=== PATIENT | male | born 1945 | race Caucasian/White ===

== ENCOUNTER 2018-09-05 15:00 | Inpatient (IN) | payer OTHER ==
[~2018-09-05] VITALS: Ht 179.1 cm; Wt 97.6 kg
[2018-09-05 16:36] VITALS: BP 140/75
[2018-09-05] MEDS ORDERED: FLUT15OI4 TP (17:12)
[2018-09-05] MEDS ORDERED: ALBU8.5H8 IH (17:12)
[2018-09-05] MEDS ORDERED: FAMO-136 PO (17:12)
[2018-09-05] MEDS ORDERED: ASPI-555 PO (17:12)
[2018-09-05] MEDS ORDERED: GABA600T10 PO (17:12)
[2018-09-05] MEDS ORDERED: ATOR40TA71 PO (17:12)
[2018-09-05] MEDS ORDERED: LOSA50TA64 PO (17:12)
[2018-09-05 17:41] LABS: INR 1.05 (0.85-1.15); PARTIAL THROMBOPLASTIN TIME 29.5 SEC (26.3-35.5)
[2018-09-08] VITALS (26 sets, daily range): BP systolic 96–140; BP diastolic 53–78
[2018-09-08] MEDS: CEFAZOLIN SODIUM 1 GM VIAL IVP ONE ×2 (08:00→13:50)
[2018-09-08] MEDS ORDERED: LACTATED RINGERS 1000ML 1,000 ML IV ONE (10:38)
[2018-09-08] MEDS ORDERED: CEFAZOLIN SODIUM 1 GM VIAL ONE ×2 (10:38→12:09)
--- NOTE | 2018-09-08 10:56 | NUR ---
assess large bruise and swelling noted to right hip, pt states fell 1 week ago. ,
--- NOTE | 2018-09-08 11:17 | NUR ---
right shoulder clipped and wiped with Jer by Julio C
[2018-09-08] MEDS ORDERED: TRANEXAMIC ACID 1000MG/10ML IV ONE (12:49)
[2018-09-08] MEDS ORDERED: LIDOCAINE PF 2% 5ML ABBOJECT ONE (13:20)
[2018-09-08] MEDS ORDERED: MIDAZOLAM HCL 1 MG/ML 2ML VIAL ONE (13:21)
[2018-09-08] MEDS ORDERED: PROPOFOL 10 MG/ML 20ML VIAL IV ONE ×2 (13:21→17:36)
[2018-09-08] MEDS ORDERED: ONDANSETRON HCL 4 MG/2 ML VIAL ONE (13:21)
[2018-09-08] MEDS ORDERED: ROCURONIUM 10MG/1ML SYR 10 MG/ML ML ONE ×2 (13:22→14:03)
[2018-09-08] MEDS ORDERED: ROPIVACAINE 0.5% 5MG/ML 30ML IJ ONE (13:27)
[2018-09-08] MEDS ORDERED: DEXAMETHASONE SOD PHOSPHATE 10MG/ML 1ML VIAL ONE (13:39)
[2018-09-08] MEDS ORDERED: FENTANYL CITRATE PF 50 MCG/1 ML 2ML VIAL ONE (14:21)
[2018-09-08] MEDS ORDERED: EPHEDRINE SULFATE 50 MG/ML AMPULE ONE (14:36)
[2018-09-08] MEDS ORDERED: TRAMADOL HCL 50 MG TABLET PO PRN (17:30)
[2018-09-08] MEDS ORDERED: TEMAZEPAM 15 MG CAPSULE PO PRN (17:30)
[2018-09-08] MEDS ORDERED: POTASSIUM CHLORIDE 20 MEQ ERTAB PO PRN (17:30)
[2018-09-08] MEDS ORDERED: LIDOCAINE HCL-MPF 1% 2ML VIAL IVP PRN (17:30)
[2018-09-08] MEDS ORDERED: CALCIUM CARBONATE 500 MG TABLET PO PRN (17:30)
[2018-09-08] MEDS ORDERED: KETOROLAC TROMETHAMINE 15MG/ML IV PRN (17:30)
[2018-09-08] MEDS ORDERED: POTASSIUM CHLORIDE 10% ELIXIR 20 MEQ/15 ML UDCUP PO PRN (17:30)
[2018-09-08] MEDS ORDERED: POTASSIUM CHLORIDE 20MEQ/100ML 100 ML IV PRN (17:30)
[2018-09-08] MEDS ORDERED: FE FUMARATE/FA/MV, MIN COMB#15 1 TAB PO PRN (17:30)
[2018-09-08] MEDS ORDERED: DiphenhydrAMINE HCL 50 MG/ML VIAL IVP PRN (17:30)
[2018-09-08] MEDS ORDERED: ONDANSETRON HCL 4 MG/2 ML VIAL IVP PRN (17:30)
[2018-09-08] MEDS ORDERED: NEOSTIGMINE 5MG/5ML SYR IV ONE (17:31)
[2018-09-08] MEDS ORDERED: GLYCOPYRROLATE 1 MG/5 ML SYRINGE ONE (17:31)
[2018-09-08] MEDS: SODIUM CHLORIDE 0.9% 1000ML 1,000 ML IV SCH (20:13)
[2018-09-08] MEDS: ACETAMINOPHEN EXTRA STRENGTH 500 MG TABLET PO SCH ×2 (20:18→23:01)
[2018-09-08] MEDS: GABAPENTIN 300 MG CAPSULE PO SCH (20:18)
[2018-09-08] MEDS: FAMOTIDINE 20MG TAB 20 MG TAB PO SCH (20:18)
[2018-09-08] MEDS: CELECOXIB 200 MG CAP PO SCH (20:18)
[2018-09-08] MEDS: ASPIRIN 325 MG TABLET PO SCH (20:18)
[2018-09-08] MEDS: OXYCODONE HCL 5 MG TAB PO PRN (20:19)
[2018-09-08] MEDS ORDERED: PREGABALIN 25 MG CAP PO SCH (21:00)
[2018-09-08] MEDS: CEFAZOLIN SODIUM 1 GM VIAL IVP SCH (22:58)
[2018-09-09] MEDS: SODIUM CHLORIDE 0.9% 1000ML 1,000 ML IV SCH ×2 (03:27→09:30)
[2018-09-09 04:00] VITALS: BP 99/58
[2018-09-09 04:25] LABS: HEMATOCRIT 35.7 % (42-54); MEAN CORPUSCULAR HEMOGLOBIN 30.5 pg (27.0-33.0); MEAN CORPUSCULAR HGB CONC 34.1 g/dL (32.0-36.0); MEAN CORPUSCULAR VOLUME 89.4 fL (79-99); PLATELET COUNT (AUTO) 187 K/uL (130-400); RED BLOOD CELL COUNT(AUTO) 3.99 MIL/uL (4.50-6.20); RED CELL DISTRIBUTION WIDTH 13.6 % (11.0-15.5); WHITE BLOOD COUNT (AUTO) 11.7 K/uL (4.8-10.8)
[2018-09-09 04:39] LABS: CREATININE 0.9 mg/dL (0.5-1.5); POTASSIUM 4.2 mmol/L (3.5-5.1)
[2018-09-09] MEDS: CEFAZOLIN SODIUM 1 GM VIAL IVP SCH (05:34)
[2018-09-09] MEDS: GABAPENTIN 300 MG CAPSULE PO SCH ×3 (06:22→20:25)
[2018-09-09 08:25] VITALS: BP 117/73
[2018-09-09] MEDS: FLUTICASONE PROPIONATE TP SCH (09:00)
[2018-09-09] MEDS ORDERED: VENTOLIN HFA IH PRN (09:00)
[2018-09-09] MEDS: LOSARTAN 50 MG TABLET PO SCH (09:00)
--- NOTE | 2018-09-09 09:00 | NUR ---
SORAYA GIANG AND PEPE SET UP MET W PT AAOX3 S/P SHOULDER SURGERY. LIVES W SPOUSE WHO WILL PROVIDE TRANPSORT. ORDERS FOR HOME HEALTH- SENT TO [facility] Addendum: 09/12/18 at 2119 by GEETA KENNY RN CM Amended: Links added.
[2018-09-09] MEDS: ATORVASTATIN CALCIUM 20 MG TABLET PO SCH (09:29)
[2018-09-09] MEDS: ASPIRIN 325 MG TABLET PO SCH ×2 (09:29→20:24)
[2018-09-09] MEDS: FAMOTIDINE 20MG TAB 20 MG TAB PO SCH ×2 (09:29→20:24)
[2018-09-09] MEDS: ACETAMINOPHEN EXTRA STRENGTH 500 MG TABLET PO SCH ×3 (09:29→23:44)
[2018-09-09] MEDS: OXYCODONE HCL 5 MG TAB PO PRN ×4 (09:30→23:43)
[2018-09-09] MEDS: CELECOXIB 200 MG CAP PO SCH ×2 (09:30→20:24)
[2018-09-09] MEDS: TAMSULOSIN HCL 0.4 MG CAP.ER.24H PO SCH (09:30)
[2018-09-09] MEDS: POLYETHYLENE GLYCOL 3350 17 GM POWD.PACK PO SCH (09:30)
[2018-09-09 11:50] VITALS: BP 115/63
[2018-09-09 16:29] VITALS: BP 102/54
[2018-09-09 19:59] VITALS: BP 108/55
[2018-09-09 23:59] VITALS: BP 113/57
[2018-09-10 04:00] VITALS: BP 124/66
[2018-09-10] MEDS: GABAPENTIN 300 MG CAPSULE PO SCH ×2 (06:50→12:52)
[2018-09-10 08:39] VITALS: BP 130/72
[2018-09-10] MEDS: LOSARTAN 50 MG TABLET PO SCH (09:00)
[2018-09-10] MEDS: FLUTICASONE PROPIONATE TP SCH (09:00)
[2018-09-10] MEDS: ATORVASTATIN CALCIUM 20 MG TABLET PO SCH (09:00)
[2018-09-10] MEDS: ACETAMINOPHEN EXTRA STRENGTH 500 MG TABLET PO SCH ×2 (09:34→16:51)
[2018-09-10] MEDS: FAMOTIDINE 20MG TAB 20 MG TAB PO SCH (09:35)
[2018-09-10] MEDS: CELECOXIB 200 MG CAP PO SCH (09:35)
[2018-09-10] MEDS: TAMSULOSIN HCL 0.4 MG CAP.ER.24H PO SCH (09:35)
[2018-09-10] MEDS: ASPIRIN 325 MG TABLET PO SCH (09:35)
[2018-09-10] MEDS: POLYETHYLENE GLYCOL 3350 17 GM POWD.PACK PO SCH (09:36)
[2018-09-10] MEDS ORDERED: TRAM50TA4 PO (11:11)
[2018-09-10] MEDS ORDERED: IBUP-2077 PO (11:13)
[2018-09-10 11:33] VITALS: BP 123/69
--- NOTE | 2018-09-10 15:16 | NUR ---
DISCHARGE INSTRUCTIONS GIVEN AND EXPLAINED UTILIZING TEACH BACK METHOD, PT/FAMILY VERBALIZED UNDERSTANDING. DISCHARGE WITH HOME HEALTH. CALL FOR ANY CONCERNS. FOLLOW UP WITH DR. PATHAK ON 09/29/18 @ 1:30 P.M. CALL 31/12 FOR ANY CONCERNS. [phone] RESUME PREVIOUS DIET. RESUME YOUR PREVIOUS HOME MEDS. PLEASE TAKE PRESCRIPTION MEDS INSTRUCTED. NURSE TO REMOVE DRESSING ON 09/13/18. CONTINUE DAILY DRESSING CHANGES IF NEEDED AFTER 1ST REMOVAL. MAY SHOWER AND GET DRESSING WET BUT DO NOT PULL/RUB IT. IF YOU NEED A PRESCRIPTION REFILL ON YOUR PAIN MEDS, PLEASE CALL OFFICE A FEW DAYS BEFORE YOU TAKE YOUR LAST PAIN PILL. FOLLOW THERAPIST RECOMMENDATIONS/INSTRUCTIONS. SHOULDER ACTIVE/PASSIVE ASSIST: DO ACTIVE/PASSIVE ASSISTED SHOULDER RANGE OF MOTION EXERCISES. SUPINE AND SEATED PENDULUM: DO SUPINE AND SEATED PENDULUM EXERCISES. DO WALL WALKING EXERCISES. LIMIT EXTERNAL ROTATION TO 30 DEGREES. DO ELBOW/WRIST/HAND ACTIVE RANGE OF MOTION AND STRENGTHENING EXERCISES. CALL 911 OR GO TO EMERGENCY ROOM IF YOU HAVE ANY CHEST PAIN/DISCOMFORT, SHORTNESS OF BREATH/DIFFICULTY BREATHING OR NEEDED. Addendum: 09/10/18 at 1538 by MICA GOMEZ RN DISCHARGE TO [facility]. REPORT CALLED HENRIQUE QUIROZ LVN. [phone] CALL FOR ANY CONCERNS.
--- NOTE | 2018-09-10 15:46 | NUR ---
LAST BOWEL MOVEMENT 09/07/18. PT WITH ACTIVE BOWEL SOUNDS X4 QUADRANTS. + FLATUS. ABDOMEN SOFT, NONDISTENDED. DENIES ANY ABDOMINAL PAIN/DISCOMFORT. ASKED PT NURSE TO GIVE DULCOLAX SUPPOSITORY. PT STATED, "OH NO, I CAN GO ON MY OWN. I FEEL IM GETTING TO GO PRETTY SOON." EXPLAINED RATIONALE. PT REPORTS HE WILL NOTIFY HOME HEALTH NURSE/DR. NEEDED. INSTRUCTED TO EAT HIGH FIBER FOODS. PT DRANK PRUNE JUICE.
[2018-09-10 16:50] VITALS: BP 142/68
[2018-09-11] MEDS ORDERED: BISACODYL 10 MG SUPP.RECT RC PRN (17:30)
== END 2018-09-10 17:07 | disposition home health service (06) | DRG 483 ==
LOC: EDSTATUS 15:00 → DAHIP 09-08 10:10 → 4AH 09-08 17:43
PROVIDERS: ADMIT Orthopaedic Surgery; ATTEND Orthopaedic Surgery
PROC: 0RRJ0JZ Replacement of Right Shoulder Joint with Synthetic Substitute, Open Approach (ICD-10-PCS; principal; 2018-09-08 13:22)
PROC: 3E0T3BZ Introduction of Anesthetic Agent into Peripheral Nerves and Plexi, Percutaneous Approach (ICD-10-PCS; 2018-09-08 13:22)
DX: M19.011 Primary osteoarthritis, right shoulder (principal); C44.90 Unspecified malignant neoplasm of skin, unspecified; E78.00 Pure hypercholesterolemia, unspecified; I10 Essential (primary) hypertension; Z96.612 Presence of left artificial shoulder joint; Z96.652 Presence of left artificial knee joint; G89.29 Other chronic pain; J45.909 Unspecified asthma, uncomplicated; K21.9 Gastro-esophageal reflux disease without esophagitis; Z87.891 Personal history of nicotine dependence; Z82.49 Family history of ischemic heart disease and other diseases of the circulatory system; Z80.9 Family history of malignant neoplasm, unspecified; Z88.5 Allergy status to narcotic agent
CPT/HCPCS: 36415; 76000; 80048; 85027; 85610; 85730; 88304; 88311; A4218; A4565; C1776; G0378; J0690; J1100; J2001; J2250; J2405; J2704; J2710; J2795; J3010; J3490; J7120

== ENCOUNTER 2018-12-22 10:01 | Emergency (ER) | payer OTHER ==
[~2018-12-22 10:01] MED LIST: ALBU8.5H8 IH; ASPI-555 PO; ATOR40TA71 PO; FAMO-136 PO; FLUT15OI4 TP; GABA600T10 PO; IBUP-2077 PO; LOSA50TA64 PO; TRAM50TA4 PO
[2018-12-22] MEDS ORDERED: METHYLPREDNISOLONE SOD SUCC 125MG/2ML VIAL ONE (10:30)
[2018-12-22] MEDS ORDERED: IPRATROPIUM/ALBUTEROL SULFATE 3 ML SOLUTION IH ONE (10:36)
[2018-12-22 10:50] LABS: BASOPHILS % (AUTO) 0.7 % (0.0-5.0); EOSINOPHILS % (AUTO) 2.2 % (0.0-8.0); HEMATOCRIT 45.1 % (42-54); LYMPHOCYTES % (AUTO) 22.7 % (21.0-51.0); MEAN CORPUSCULAR HEMOGLOBIN 30.2 pg (27.0-33.0); MEAN CORPUSCULAR HGB CONC 34.1 g/dL (32.0-36.0); MEAN CORPUSCULAR VOLUME 88.5 fL (79-99); MONOCYTES % (AUTO) 14.8 % (3.0-13.0); NEUTROPHILS % (AUTO) 59.6 % (40.0-77.0); NUCLEATED RED BLOOD CELLS 0.1 % (0.0-0.19); PLATELET COUNT (AUTO) 167 K/uL (130-400); RED BLOOD CELL COUNT(AUTO) 5.09 MIL/uL (4.50-6.20); RED CELL DISTRIBUTION WIDTH 14.4 % (11.0-15.5); WHITE BLOOD COUNT (AUTO) 6.3 K/uL (4.8-10.8)
[2018-12-22 10:59] LABS: CREATININE 0.9 mg/dL (0.5-1.5)
[2018-12-22 11:04] LABS: ALBUMIN 3.9 g/dL (3.5-5.0); BILIRUBIN,TOTAL 0.4 mg/dL (0.2-1.0); TOTAL PROTEIN, SERUM 7.5 g/dL (6.0-8.3)
[2018-12-22 11:21] LABS: B-TYPE NATRIURETIC PEPTIDE < 5 pg/mL (0-100)
[2018-12-22 11:49] LABS: APPEARANCE,URINE Clear (CLEAR); BILIRUBIN,URINE Negative (NEGATIVE); COLOR,URINE Yellow (YELLOW); GLUCOSE, URINE (UA) Negative (NEGATIVE); KETONES,URINE Negative (NEGATIVE); LEUKOCYTE ESTERASE ,URINE Negative (NEGATIVE); NITRATE,URINE Negative (NEGATIVE); OCCULT BLOOD,URINE Negative (NEGATIVE); PH,URINE 6.5 (5.0-8.0); PROTEIN,URINE Negative (NEGATIVE)
[2018-12-22] MEDS ORDERED: GUAIFENESIN-DM 200/20 MG 10 ML ONE (12:39)
[2018-12-22] MEDS ORDERED: ALBUTEROL SULFATE 0.083% 2.5 MG/3 ML INH IH ONE (12:48)
== END 2018-12-22 14:08 | disposition home or self-care (01) ==
LOC: EDH 10:01
DX: J45.21 Mild intermittent asthma with (acute) exacerbation (principal); E78.00 Pure hypercholesterolemia, unspecified; I10 Essential (primary) hypertension; Z87.891 Personal history of nicotine dependence
CPT/HCPCS: 36415; 71045; 80053; 81003; 82550; 83880; 84484; 85025; 93005; 94640 ×3; 96374; 99285; J2930

== ENCOUNTER 2021-02-06 10:32 | Emergency (ER) | payer OTHER ==
[~2021-02-06] VITALS: Ht 177.8 cm; Wt 99.8 kg
[~2021-02-06 10:32] MED LIST changes: +ACET-2743 PO; +ASPI-1005 PO; -ASPI-555 PO; +ATOR10 PO; -ATOR40TA71 PO; +BUDE180H IH; -FAMO-136 PO; -IBUP-2077 PO; +METH-812 PO; +MONT10TA32 PO; +OMEP40CA21 PO
[2021-02-06 10:34] VITALS: BP 134/83
[2021-02-06 12:33] VITALS: BP 129/87
[2021-02-06] MEDS ORDERED: NAPR-1174 PO (14:17)
[2021-02-06 14:48] VITALS: BP 124/75
[2021-02-15] MEDS ORDERED: CA C1TAB99 PO (11:19)
[2021-02-15] MEDS ORDERED: FLUT15.845 NS (11:19)
[2021-02-15] MEDS ORDERED: MELO-108 PO (11:19)
[2021-02-15] MEDS ORDERED: MAGN250T10 PO (11:19)
[2021-02-15] MEDS ORDERED: VITA1CAP85 PO (11:19)
[2021-02-15] MEDS ORDERED: ASPI-1443 PO (11:19)
[2021-02-15] MEDS ORDERED: CHOL500051 PO (11:19)
[2021-02-15] MEDS ORDERED: CINN500C PO (11:19)
[2021-02-15] MEDS ORDERED: SYMB8060 IH (11:19)
[2021-02-15] MEDS ORDERED: BIOF1TAB8 PO (11:19)
[2021-02-15] MEDS ORDERED: THIO300C PO (11:19)
[2021-02-15] MEDS ORDERED: FISH OIL PO (11:19)
[2021-02-15] MEDS ORDERED: MENS MVI PO (11:19)
[2021-02-15] MEDS ORDERED: TUMERIC PO (11:19)
[2021-02-15] MEDS ORDERED: VITA100049 PO (11:19)
== END 2021-02-06 15:03 | disposition home or self-care (01) ==
LOC: EDH 10:32
DX: S05.11XA Contusion of eyeball and orbital tissues, right eye, initial encounter (principal); S04.51XA Injury of facial nerve, right side, initial encounter; I10 Essential (primary) hypertension; G62.9 Polyneuropathy, unspecified; J45.909 Unspecified asthma, uncomplicated; Z79.51 Long term (current) use of inhaled steroids; Z79.82 Long term (current) use of aspirin; Z79.899 Other long term (current) drug therapy; Z88.5 Allergy status to narcotic agent; Z96.611 Presence of right artificial shoulder joint; Z96.612 Presence of left artificial shoulder joint; Z96.652 Presence of left artificial knee joint; W18.39XA Other fall on same level, initial encounter; Y93.89 Activity, other specified; Y92.89 Other specified places as the place of occurrence of the external cause; Y99.8 Other external cause status
CPT/HCPCS: 70450; 70486; 72125; 93005

== ENCOUNTER 2021-02-16 07:11 | Day surgery (SDC) | payer OTHER ==
[2021-02-14 10:53] LABS: BASOPHILS % (AUTO) 0.7 % (0.0-5.0); EOSINOPHILS % (AUTO) 1.1 % (0.0-8.0); HEMATOCRIT 44.3 % (42-54); LYMPHOCYTES % (AUTO) 15.7 % (21.0-51.0); MEAN CORPUSCULAR HEMOGLOBIN 29.8 pg (27.0-33.0); MEAN CORPUSCULAR HGB CONC 32.5 g/dL (32.0-36.0); MEAN CORPUSCULAR VOLUME 91.7 fL (79-99); MONOCYTES % (AUTO) 7.8 % (3.0-13.0); NEUTROPHILS % (AUTO) 74.4 % (40.0-77.0); PLATELET COUNT (AUTO) 224 K/uL (130-400); RED BLOOD CELL COUNT(AUTO) 4.83 MIL/uL (4.50-6.20); RED CELL DISTRIBUTION WIDTH 14.4 % (11.0-15.5); WHITE BLOOD COUNT (AUTO) 9.1 K/uL (4.8-10.8)
[2021-02-14 11:12] LABS: POTASSIUM 4.7 mmol/L (3.5-5.1)
[2021-02-15 10:44] VITALS: BP 154/88
[~2021-02-16] VITALS: Ht 177.8 cm; Wt 102.6 kg
[2021-02-16] VITALS (15 sets, daily range): BP systolic 126–145; BP diastolic 71–90
[~2021-02-16 07:11] MED LIST changes: -ACET-2743 PO; -ALBU8.5H8 IH; -ASPI-1005 PO; +ASPI-1443 PO; +BIOF1TAB8 PO; -BUDE180H IH; +CA C1TAB99 PO; +CHOL500051 PO; +CINN500C PO; +FISH OIL PO; +FLUT15.845 NS; -FLUT15OI4 TP; +MAGN250T10 PO; +MELO-108 PO; +MENS MVI PO; -METH-812 PO; +SYMB8060 IH; +THIO300C PO; -TRAM50TA4 PO; +TUMERIC PO; +VITA100049 PO; +VITA1CAP85 PO
[2021-02-16] MEDS ORDERED: LACTATED RINGERS 1000ML 1,000 ML IV ONE (07:30)
[2021-02-16] MEDS: CEFAZOLIN SODIUM 1 GM VIAL ONE ×2 (08:07→09:35)
[2021-02-16] MEDS ORDERED: ALBUTEROL INHALER 90MCG/INH IH ONE (09:17)
[2021-02-16] MEDS ORDERED: CEFAZOLIN SODIUM 1 GM VIAL ONE (09:17)
[2021-02-16] MEDS ORDERED: FENTANYL CITRATE PF 50 MCG/1 ML 2ML VIAL ONE (09:35)
[2021-02-16] MEDS ORDERED: LIDOCAINE PF 100MG/5ML (2%) SYRINGE 5ML ONE (09:35)
[2021-02-16] MEDS ORDERED: PROPOFOL 10 MG/ML 20ML VIAL IV ONE (09:35)
[2021-02-16] MEDS ORDERED: GLYCOPYRROLATE 1 MG/5 ML SYRINGE ONE (09:35)
[2021-02-16] MEDS ORDERED: SUCCINYLCHOLINE CHLORIDE 20 MG/ML 10 ML VIAL ONE (09:35)
[2021-02-16] MEDS ORDERED: MIDAZOLAM HCL 1 MG/ML 2ML VIAL ONE (09:35)
[2021-02-16] MEDS ORDERED: MEPERIDINE-PF 25 MG/ML SYG ONE (10:48)
[2021-02-16] MEDS ORDERED: CEPH500B PO (11:12)
[2021-02-16] MEDS ORDERED: HYDR-4060 PO (11:12)
== END 2021-02-16 12:40 | disposition home or self-care (01) ==
LOC: DAH 07:11
PROVIDERS: ATTEND Orthopaedic Surgery
DX: M25.862 Other specified joint disorders, left knee (principal); Z20.822 Contact with and (suspected) exposure to COVID-19; M67.20 Synovial hypertrophy, not elsewhere classified, unspecified site; G89.29 Other chronic pain; I10 Essential (primary) hypertension; J44.9 Chronic obstructive pulmonary disease, unspecified; M19.90 Unspecified osteoarthritis, unspecified site; E78.5 Hyperlipidemia, unspecified; Z79.899 Other long term (current) drug therapy; Z88.6 Allergy status to analgesic agent; Z72.89 Other problems related to lifestyle; Z96.652 Presence of left artificial knee joint; Z87.891 Personal history of nicotine dependence; Z90.89 Acquired absence of other organs; Z98.52 Vasectomy status; Z98.890 Other specified postprocedural states; Z82.49 Family history of ischemic heart disease and other diseases of the circulatory system; Z80.9 Family history of malignant neoplasm, unspecified
CPT/HCPCS: 36415; 80048; 85025; 87635; 93005; A4606; C9803; J0330; J0690; J2001; J2175; J2250; J2704; J3010; J3490; J7120

== ENCOUNTER 2021-10-25 12:38 | Emergency (ER) | payer MEDICARE, OTHER ==
[~2021-10-25] VITALS: Ht 177.8 cm; Wt 99.8 kg
[~2021-10-25 12:38] MED LIST changes: +CEPH500B PO; +HYDR-4060 PO; +MONT-39 PO; -MONT10TA32 PO
[2021-10-25 13:26] LABS: BASOPHILS % (AUTO) 0.3 % (0.0-5.0); EOSINOPHILS % (AUTO) 0.1 % (0.0-8.0); HEMATOCRIT 43.7 % (42-54); LYMPHOCYTES % (AUTO) 12.5 % (21.0-51.0); MEAN CORPUSCULAR HEMOGLOBIN 29.9 pg (27.0-33.0); MEAN CORPUSCULAR HGB CONC 33.4 g/dL (32.0-36.0); MEAN CORPUSCULAR VOLUME 89.5 fL (79-99); MONOCYTES % (AUTO) 8.7 % (3.0-13.0); NEUTROPHILS % (AUTO) 77.8 % (40.0-77.0); PLATELET COUNT (AUTO) 220 K/uL (130-400); RED BLOOD CELL COUNT(AUTO) 4.88 MIL/uL (4.50-6.20); RED CELL DISTRIBUTION WIDTH 13.9 % (11.0-15.5); WHITE BLOOD COUNT (AUTO) 9.8 K/uL (4.8-10.8)
[2021-10-25] MEDS ORDERED: BENZONATATE 100 MG CAPSULE PO SCH (13:30)
[2021-10-25 13:35] LABS: CREATININE 0.9 mg/dL (0.5-1.5); POTASSIUM 3.7 mmol/L (3.5-5.1)
[2021-10-25 13:40] LABS: ALBUMIN 3.8 g/dL (3.5-5.0); BILIRUBIN,TOTAL 0.7 mg/dL (0.2-1.0); TOTAL PROTEIN, SERUM 7.1 g/dL (6.0-8.3)
[2021-10-25 13:46] VITALS: BP 149/80
[2021-10-25] MEDS ORDERED: NAPR-1180 PO (14:02)
[2021-10-25] MEDS ORDERED: BENZ-39 PO (14:02)
== END 2021-10-25 14:16 | disposition home or self-care (01) ==
LOC: EDH 12:38
DX: J06.9 Acute upper respiratory infection, unspecified (principal); M94.0 Chondrocostal junction syndrome [Tietze]; J45.909 Unspecified asthma, uncomplicated; I10 Essential (primary) hypertension; G62.9 Polyneuropathy, unspecified; Z88.5 Allergy status to narcotic agent; Z79.899 Other long term (current) drug therapy; Z79.82 Long term (current) use of aspirin; Z98.890 Other specified postprocedural states
CPT/HCPCS: 36415; 71045; 80053; 84484; 85025; 93005

== ENCOUNTER → 2022-05-25 | Outpatient (CLI) | payer OTHER ==
[~2022-05-25] MED LIST changes: +BENZ-39 PO; +NAPR-1180 PO
== END | disposition home or self-care (01) ==
LOC: SHCH 09:54
PROVIDERS: ATTEND Internal Medicine Cardiovascular Disease
DX: I11.9 Hypertensive heart disease without heart failure (principal); R55 Syncope and collapse; E78.5 Hyperlipidemia, unspecified
CPT/HCPCS: 93306

== ENCOUNTER 2023-11-16 14:30 | Emergency (ER) | payer OTHER ==
[~2023-11-16] VITALS: Ht 177.8 cm; Wt 99.8 kg
[~2023-11-16 14:30] MED LIST changes: -VITA100049 PO; +VITA100059 PO
[2023-11-16 14:31] VITALS: BP 133/76; PULSE 69; RESP 18
[2023-11-16] MEDS ORDERED: AMOX1TAB16 PO (16:42)
== END 2023-11-16 16:55 | disposition home or self-care (01) ==
LOC: EDH 14:30
DX: H66.92 Otitis media, unspecified, left ear (principal); I10 Essential (primary) hypertension; J45.909 Unspecified asthma, uncomplicated; Z79.82 Long term (current) use of aspirin; Z79.84 Long term (current) use of oral hypoglycemic drugs; Z79.899 Other long term (current) drug therapy; Z98.890 Other specified postprocedural states; Z88.5 Allergy status to narcotic agent

== ENCOUNTER 2024-06-18 06:00 | Day surgery (SDC) | payer OTHER ==
[2024-06-12 11:43] VITALS: BP 133/65; PULSE 70; RESP 16; TEMP 97.7
[2024-06-12 12:08] LABS: APPEARANCE,URINE CLEAR (CLEAR); BILIRUBIN,URINE NEGATIVE (NEGATIVE); COLOR,URINE LIGHT-YELLOW (YELLOW); GLUCOSE, URINE (UA) NEGATIVE (NEGATIVE); KETONES,URINE NEGATIVE (NEGATIVE); LEUKOCYTE ESTERASE ,URINE NEGATIVE Leu/uL (NEGATIVE); NITRATE,URINE NEGATIVE (NEGATIVE); OCCULT BLOOD,URINE NEGATIVE (NEGATIVE); PROTEIN,URINE NEGATIVE (NEGATIVE); UROBILINOGEN,URINE 0.2 mg/dL (0.2-1.0)
[2024-06-12 12:39] LABS: ADD UA MICROSCOPIC NO
[~2024-06-18] VITALS: Ht 177.8 cm; Wt 102.3 kg
[2024-06-18] VITALS (18 sets, daily range): BP systolic 94–136; BP diastolic 53–81; PULSE 71–87; RESP 12–18; TEMP 96.9–98.1
[~2024-06-18 06:00] MED LIST changes: +ALBU18HF7 IH; -ASPI-1443 PO; -BENZ-39 PO; -BIOF1TAB8 PO; +BUDE10.2 IH; -CA C1TAB99 PO; -CEPH500B PO; -CHOL500051 PO; -FISH OIL PO; +GABA-1405 PO; -GABA600T10 PO; -HYDR-4060 PO; -MAGN250T10 PO; -MELO-108 PO; -MENS MVI PO; +MVIT PO; -NAPR-1180 PO; +OMEG100033 PO; -OMEP40CA21 PO; +ROPI0.5T37 PO; -SYMB8060 IH; -THIO300C PO; +TIOT18CA3 IH; +UBID100T7 PO; -VITA100059 PO
[2024-06-18] MEDS: ceFAZolin SODIUM 2 GM VIAL ONE (07:31)
[2024-06-18] MEDS: LACTATED RINGERS 1000ML 1,000 ML IV ONE (07:32)
[2024-06-18] MEDS: ALBUTEROL 0.083% 2.5 MG/3 ML INH IH ONE ×2 (08:08→08:09)
[2024-06-18] MEDS ORDERED: proPOFol 10 MG/ML 20ML VIAL IV ONE (08:46)
[2024-06-18] MEDS ORDERED: MIDAZOLAM HCL 1 MG/ML 2ML VIAL ONE (08:46)
[2024-06-18] MEDS ORDERED: rocuRONium bROMide 10MG/1ML 5ML VL ONE (08:47)
[2024-06-18] MEDS ORDERED: ePHEDrine SULFate 50 MG/ML AMPULE ONE (10:15)
--- NOTE | 2024-06-18 10:46 | OP ---
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 The patient has developed pain in the lateral aspect of the knee of the patellofemoral area as well as some crepitation. The patient is brought to the operating room for arthroscopic evaluation possible synovectomy, possible lateral release after x-rays showed mild maltracking of the patella. Procedure understood, risks, benefits and possible complications and agreed signed the consent form] DESCRIPTION OF PROCEDURE: [After adequate general anesthesia was achieved the patient left lower extremity was prepped and draped in the usual manner previous placement of the tourniquet in the proximal thigh. The extremity was elevated and exsanguinated with an Esmarch bandage and the tourniquet was inflated to 250 minutes of mercury the Esmarch band been removed. The knee was brought to the side of the bed at 90 degrees of flexion and 2 small incisions were carried out medial lateral to the patella tendon through the skin followed by blunt excision with a trocar entry into the joint. The arthroscope was then inserted through the lateral portal and evaluation revealed very significant amount of scar tissue surrounding the patella component. Evaluation of anterior aspect of the joint was made and with the use of the shaver we proceeded to remove some of the scar tissue present in this area and evaluate the tibial component which was noted to be well seated in the tibial tray. We then brought the knee into extension medial portal we proceeded with the use of the shaver as well as the electrocautery to remove all the scar tissue present in the medial sides of the patella as well as in the inferomedial side switching then the arthroscope to the opposite portal at this time removing the scar tissue from the lateral side and inferolateral side. We were able to remove some of the superior scar but not enough and for this reason we proceeded then to make a incision in the superomedial aspect of the knee at the level of the superior pole of the patella going through the skin followed by dissection in a blunt manner inside the joint. The shaver and electrocautery were again used to remove all the scar in the superior aspect of the patellar area as well as the rest of the lateral side. At this time evaluation of the patella revealed it was clear of scar tissue. The tracking was noted to be slightly lateralized for this reason we proceeded to shave the synovium covering the lateral retinaculum and then the lateral retinaculum was incised with the cautery obtain adequate lateral release. The tourniquet was slowly deflated and small bleeders were controlled with the use of an intra-articular cautery The arthroscope was removed after removing of the fluid from the joint and then we proceeded to close incisions with nylon sutures in a standard fashion followed by application of a sterile dressing with Xeroform, 4 x 4's and an Bart bandage. The tourniquet was deflated previous to the closure of the incisions. There were no complications during the procedure.] TOBIN PATHAK MD Jun 18, 2024 10:46
[2024-06-18] MEDS: MEPERIDINE-PF 25 MG/ML SYG ONE (11:03)
--- NOTE | 2024-06-18 12:54 | NUR ---
[facility]LL[facility] DO NOT DRIVE FOR 24 HOURS NO ALCOHOL X 24 HOURS KEEP YOUR APPOINTMENT WITH YOUR DOCTOR CALL YOUR DOCTOR IF YOU HAVE SIGNS OF INFECTION: INCREASED SWELLING, REDNESS, DISCHARGE, FEVER CALL YOUR DOCTOR IF YOU HAVE WORSENING PAIN OR ANY CONCERNS. FALL PRECAUTIONS DISCUSSED AT LENGTH. INSTRUCTED ON USE OF CRUTCHESNOLAN WALKER Addendum: 06/18/24 at 1305 by KENNEDY MORRIS RN RN Full and complete discharge instructions provided to Patient and Family. All questions answered. VU to post Procedure instructions. All questions answered. PIV removed with catheter tip intact. W/C to POV with Family.
--- NOTE | 2024-06-18 18:17 | NUR ---
Pt DC home with no PT orders.
== END 2024-06-18 12:30 | disposition home or self-care (01) ==
LOC: DAH 06:00
PROVIDERS: ATTEND Orthopaedic Surgery
DX: M65.962 Unspecified synovitis and tenosynovitis, left lower leg (principal); M22.8X2 Other disorders of patella, left knee; M19.90 Unspecified osteoarthritis, unspecified site; E66.9 Obesity, unspecified; G62.9 Polyneuropathy, unspecified; I10 Essential (primary) hypertension; E78.5 Hyperlipidemia, unspecified; J45.909 Unspecified asthma, uncomplicated; Z85.828 Personal history of other malignant neoplasm of skin; Z68.30 Body mass index [BMI] 30.0-30.9, adult; Z96.652 Presence of left artificial knee joint; Z79.82 Long term (current) use of aspirin; Z79.899 Other long term (current) drug therapy
CPT/HCPCS: 87086; 81003; 87641; 29873; 94640; A4663; J7120; J3490; J2250; J2704; J2175; J0690; A6223; A4649 ×2; A4215; A4213; A4222; A4221; A4216; A6450; A4223 ×2